=== PATIENT | female | born 1970 | race Asian ===

== ENCOUNTER 2023-08-08 13:23 | Outpatient (CLI) | payer BC | END 2023-08-08 18:11 | disposition home or self-care (01) | LOC: SCA 13:23 | DX: Z01.818 Encounter for other preprocedural examination (principal) | CPT/HCPCS: 93005 ==

== ENCOUNTER 2023-08-31 08:37 | Day surgery (SDC) | payer BC ==
[~2023-08-31] VITALS: Ht 157.5 cm; Wt 56.7 kg
[2023-08-31 09:14] LABS: HCG,QUAL RESULT NEGATIVE (NEGATIVE)
[2023-08-31 09:49] VITALS: O2SAT 99
[2023-08-31] MEDS ORDERED: ACETAMINOPHEN I.V. 1000 MG 100 ML IV ONE (11:57)
[2023-08-31] MEDS ORDERED: HYDROmorphone 1 MG/ML INJ. CARTRIDGE IVP PRN ×2 (12:15)
[2023-08-31] MEDS ORDERED: LABETALOL 100 MG/ 20ML VIAL IVP PRN (12:15)
[2023-08-31] MEDS ORDERED: METOCLOPRAMIDE HCL 10 MG/2 ML VIAL IVP PRN (12:15)
[2023-08-31] MEDS ORDERED: MIDAZOLAM HCL 2 MG/2 ML VIAL (VERSED) IVP PRN (12:15)
[2023-08-31] MEDS ORDERED: MEPERIDINE HCL/PF 25 MG/ML DISP.SYRIN IVP PRN (12:15)
[2023-08-31] MEDS ORDERED: hydrALAZINE HCL 20 MG/ML VIAL IVP PRN (12:15)
[2023-08-31] MEDS ORDERED: LR 1,000 ML IV SCH (12:15)
[2023-08-31] MEDS ORDERED: PROPOFOL 200MG/ 20ML VIAL (DIPRIVAN) IV ONE (14:20)
[2023-08-31] MEDS ORDERED: LR 1,000 ML IV.SOLN IV ONE (14:20)
[2023-08-31] MEDS ORDERED: OXYMETAZOLINE HCL 0.05% NASAL SPRAY NS ONE (14:20)
[2023-08-31] MEDS ORDERED: DESFLURANE 15 MIN GAS INH ONE (14:20)
[2023-08-31] MEDS ORDERED: MIDAZOLAM HCL 5 MG/ML VIAL (VERSED) IV ONE (14:20)
[2023-08-31] MEDS ORDERED: NS IRRIG SOLN 1000 ML IR ONE (14:20)
[2023-08-31] MEDS ORDERED: EPINEPHrine HCL 1 MG/ML VIAL ONE (14:20)
[2023-08-31] MEDS ORDERED: LIDOCAINE 2%, 20 ML MDV ONE (14:20)
[2023-08-31] MEDS ORDERED: WATER FOR IRRIGATION,STERILE 1,000 ML IRRIG.SOLN IR ONE (14:20)
[2023-08-31] MEDS ORDERED: NS 1000 ML IV.SOLN IV ONE (14:20)
[2023-08-31] MEDS ORDERED: DEXAMETHASONE SOD PHOSPHATE 4 MG/ML VIAL ONE (14:20)
[2023-08-31] MEDS ORDERED: ROCURONIUM BROMIDE 10 MG/ML (ZEMURON) ONE (14:20)
[2023-08-31] MEDS ORDERED: MUPIROCIN 2% TOPICAL OINTMENT 22 GM ONE (14:20)
[2023-08-31] MEDS ORDERED: LIDOCAINE/EPI 1% 1:100000 20 ML VIAL ONE (14:20)
[2023-08-31] MEDS ORDERED: fentaNYL CITRATE/PF 100 MCG/2 ML AMP ONE (14:20)
[2023-08-31] MEDS ORDERED: SUGAMMADEX SODIUM 200 MG/2 ML VIAL IV ONE (14:20)
[2023-08-31] MEDS ORDERED: ONDANSETRON HCL 4 MG/2 ML VIAL ONE (14:20)
[2023-08-31] MEDS ORDERED: METOCLOPRAMIDE HCL 10 MG/2 ML VIAL ONE (15:11)
[2023-08-31 18:03] VITALS: BP_SYST 123; PULSE 83; RESP 16
== END 2023-08-31 17:09 | disposition home or self-care (01) ==
LOC: SDS 08:37 → SMU 08:38 → SDS 17:09
PROVIDERS: ATTEND Otolaryngology
DX: J32.9 Chronic sinusitis, unspecified (principal); D38.5 Neoplasm of uncertain behavior of other respiratory organs; J34.2 Deviated nasal septum; J34.89 Other specified disorders of nose and nasal sinuses; E78.5 Hyperlipidemia, unspecified; J45.20 Mild intermittent asthma, uncomplicated; E03.9 Hypothyroidism, unspecified; Z88.0 Allergy status to penicillin; Z79.899 Other long term (current) drug therapy
CPT/HCPCS: 31296; 84703; 88304; 88305; 88311; 30140; 30520; 31255; 31256; J3490; J1100; J0171; J2001; J2765; J2250; J2405; J2704; J3010; J7120; J7030; C1726; J0131